=== PATIENT | female | born 1945 | race Asian ===

== ENCOUNTER 2021-01-12 08:43 | Emergency (ER) | payer MEDICARE, MEDICAID ==
--- NOTE | 2021-01-12 09:46 | EDM.PDOC ---
ED HPI GENERAL MEDICAL PROBLEM - General Chief Complaint: General Stated Complaint: COVID + HAS GOT WORSE SINCE REGENERON INFUSION Time Seen by Provider: 01/12/21 09:35 - History of Present Illness INITIAL COMMENTS - FREE TEXT/NARRATIVE: 75-year-old female presents the emergency room with weakness and a left-sided headache. Patient states this started fairly quickly after getting the monoclonal antibody treatment 2 weeks ago for Covid. It is not getting better she is able to care for self but she has this annoying left-sided headache. She is not had any fevers or chills. However, does have some dizziness associated with this headache it is caused her to fall a couple of times she denies any significant injury from the falls. She has no other complaints at this time. Headache Pain Score (Numeric/FACES): 7 - Related Data Allergies Allergy/AdvReac Type Severity Reaction Status Date / Time No Known Allergies Allergy Verified 12/29/20 11:01 Home Meds: Home Meds Orphenadrine [Norflex] 100 mg PO ASDIRECTED #7 tab 01/12/21 [Rx] Past Medical History HEENT History: Reports: Impaired Vision - Infectious Disease History Infectious Disease History: Reports: Novel Coronavirus Social & Family History - Tobacco Use Tobacco Use Status *Q: Never Tobacco User ED ROS GENERAL - Review of Systems Review Of Systems: See Below Constitutional: Reports: Weakness, Fatigue, Other (She attributes the weakness and fatigue to the headache). Denies: Fever, Chills HEENT: Reports: No Symptoms Respiratory: Reports: No Symptoms Cardiovascular: Reports: No Symptoms GI/Abdominal: Reports: No Symptoms : Reports: No Symptoms Musculoskeletal: Reports: No Symptoms Skin: Reports: No Symptoms Neurological: Reports: Headache, Difficulty Walking (Secondary to dizziness), Weakness (She attributes this to dizziness). Denies: Trouble Speaking Psychiatric: Reports: No Symptoms Hematologic/Lymphatic: Reports: No Symptoms Immunologic: Reports: No Symptoms ED EXAM, GENERAL - Physical Exam Exam: See Below Exam Limited By: No Limitations General Appearance: Alert, No Apparent Distress Eye Exam: Bilateral Eye: Normal Inspection, PERRL Ears: Normal External Exam, Normal Canal, Hearing Grossly Normal, Normal TMs Nose: Normal Inspection, Normal Mucosa, No Blood Throat/Mouth: Normal Inspection, Normal Lips, Normal Teeth, Normal Gums, Normal Oropharynx, Normal Voice, No Airway Compromise Head: Atraumatic, Normocephalic Neck: Normal Inspection, Supple, Other (She has paraspinous muscle spasm and tightness on the left side palpation at the base the skull seems to elicit the discomfort that she has with her headache.). No: Limited Range of Motion, Tender Midline Respiratory/Chest: No Respiratory Distress, Lungs Clear, Normal Breath Sounds, No Accessory Muscle Use, Chest Non-Tender Cardiovascular: Regular Rate, Rhythm, No Edema, No Murmur GI/Abdominal: Normal Bowel Sounds, Soft, Non-Tender Back Exam: Normal Inspection. No: CVA Tenderness (L), CVA Tenderness (R) Extremities: Normal Inspection, No Pedal Edema Neurological: Alert, Oriented, Normal Cognition, Other (The patient has subtle right sided upper extremity weakness compared to the left she is right-hand dominant. Her right leg may be ever so subtly weaker than the left this is much more subtle than the upper extremity) Lymphatic: No Adenopathy Course - Vital Signs Last Recorded V/S: Last Vital Signs Temp 36.2 C 01/12/21 09:09 Pulse 72 01/12/21 09:09 Resp 18 01/12/21 09:09 BP 137/87 01/12/21 09:09 Pulse Ox 97 01/12/21 09:09 - Orders/Labs/Meds Orders: Active Orders 24 hr Category Date Time Status CULTURE URINE [MREF] Stat Lab 01/12/21 10:40 Received Labs: Laboratory Tests 01/12/21 01/12/21 01/12/21 Range/Units 10:15 10:15 10:40 WBC 5.55 (3.98-10.04) K/mm3 RBC 4.93 (3.98-5.22) M/mm3 Hgb 14.5 (11.2-15.7) gm/dl Hct 43.9 (34.1-44.9) % MCV 89.0 (79.4-94.8) fl MCH 29.4 (25.6-32.2) pg MCHC 33.0 (32.2-35.5) g/dl RDW Std Deviation 44.5 (36.4-46.3) fL Plt Count 564 H (182-369) K/mm3 MPV 8.3 L (9.4-12.3) fl Neut % (Auto) 53.7 (34.0-71.1) % Lymph % (Auto) 35.5 (19.3-51.7) % [place] % (Auto) 9.7 (4.7-12.5) % Eos % (Auto) 0.5 L (0.7-5.8) Baso % (Auto) 0.4 (0.1-1.2) % Neut # (Auto) 2.98 (1.56-6.13) K/mm3 Lymph # (Auto) 1.97 (1.18-3.74) K/mm3 [place] # (Auto) 0.54 H (0.24-0.36) K/mm3 Eos # (Auto) 0.03 L (0.04-0.36) K/mm3 Baso # (Auto) 0.02 (0.01-0.08) K/mm3 Sodium 141 (136-145) mEq/L Potassium 4.2 (3.5-5.1) mEq/L Chloride 104 (98-107) mEq/L Carbon Dioxide 30 (21-32) mEq/L Anion Gap 11.2 (5-15) BUN 10 (7-18) mg/dL Creatinine 0.8 (0.55-1.02) mg/dL Est Cr Clr Drug Dosing 47.26 mL/min Estimated GFR (MDRD) > 60 (>60) mL/min BUN/Creatinine Ratio 12.5 L (14-18) Glucose 93 (70-99) mg/dL Calcium 9.3 (8.5-10.1) mg/dL Total Bilirubin 0.5 (0.2-1.0) mg/dL AST 19 (15-37) U/L ALT 25 (14-59) U/L Alkaline Phosphatase 101 (46-116) U/L Total Protein 8.8 H (6.4-8.2) g/dl Albumin 3.5 (3.4-5.0) g/dl Globulin 5.3 gm/dL Albumin/Globulin Ratio 0.7 L (1-2) Urine Color Yellow (Yellow) Urine Appearance Clear (Clear) Urine pH 7.0 (5.0-8.0) Ur Specific [place] 1.020 (1.005-1.030) Urine Protein Negative (Negative) Urine Glucose (UA) Negative (Negative) Urine Ketones Negative (Negative) Urine Occult Blood Trace-intact H (Negative) Urine Nitrite Negative (Negative) Urine Bilirubin Negative (Negative) Urine Urobilinogen 0.2 (0.2-1.0) Ur Leukocyte Esterase Trace H (Negative) Urine RBC 0-5 (0-5) /hpf Urine WBC 0-5 (0-5) /hpf Ur Squamous Epith Cells 0-5 (0-5) /hpf Urine Bacteria Few (FEW) /hpf Urine Mucus Few (FEW) /hpf Meds: Medications Discontinued Medications Generic Name Dose Route Start Last Admin Trade Name Adrien PRN Reason Stop Dose Admin Aspirin 81 mg 01/12/21 13:37 01/12/21 13:47 Aspirin 81 Mg Tab.Chew PO 01/12/21 13:38 81 mg ONETIME ONE Administration - Re-Assessments/Exams Free Text/Narrative Re-Assessment/Exam: 01/12/21 10:53 CT shows low-density findings within the left cerebellar hemisphere representing a previous stroke MRI with was recommended, this has been ordered. 01/12/21 13:45 MRI does confirm an area consistent with a stroke in the left cerebellar hemisphere. It is believed that this infarct is irreversible. Case discussed with on-call neurologist at [facility] in [place], he recommends single platelet therapy baby aspirin daily echocardiogram and vascular studies of the head and neck structures. At this time I have a call out to Deena Chavez the patient's regular healthcare provider and will discuss further work-up with her. Departure - Departure Time of Disposition: 13:48 Disposition: Home, Self-Care 01 Clinical Impression: CVA (cerebral vascular accident), Muscle tension headache - Discharge Information Instructions: Tension Headache, Adult Referrals: Dracy Chavez PA-C [Primary Care Provider] - Forms: ED Department Discharge Additional Instructions: Return to the emergency room with any questions problems or worsening symptoms. Start a baby aspirin 81 mg enteric-coated 1 daily you were given 1 here in the emergency room today. Use the Norflex the muscle relaxant 1 at night and see if this helps with your h eadaches. I put orders in for you to have an outpatient CT to look at your blood vessels in your brain and neck, and an echocardiogram which is an ultrasound your heart. You should be put on a statin medication this is to help control cholesterol. Follow-up with Deena Chavez for this. Follow-up with Deena Chavez this week or early next week Sepsis Event Note (ED) - Evaluation Sepsis Screening Result: No Definite Risk - Focused Exam Vital Signs: Vital Signs Temp Pulse Resp BP Pulse Ox 01/12/21 09:09 36.2 C 72 18 137/87 97 01/12/21 09:03 36.2 C 72 18 137/87 97 - My Orders Last 24 Hours: My Active Orders 01/12/21 10:40 CULTURE URINE [MREF] Stat - Assessment/Plan Last 24 Hours: My Active Orders 01/12/21 10:40 CULTURE URINE [MREF] Stat
--- NOTE | 2021-01-12 10:19 | CT ---
Head CT Technique: Multiple axial sections through the brain were obtained. Intravenous contrast was not utilized. Reconstructed coronal and sagittal images were obtained. Comparison: No prior intracranial imaging is available. Findings: Low density abnormality is seen within the left cerebellar hemisphere. This is most likely due to a previous infarct although MRI study would be helpful to confirm. This lesion measures approximately 2.8 x 3.1 cm. Ventricles along with basal cisterns and sulci over the convexities are mildly prominent. Very minimal diminished density is noted within portions of the periventricular white matter which is compatible with small vessel ischemic demyelination change. There is no evidence of intracranial hemorrhage. No midline shift or mass-effect is seen. Bone window settings were reviewed. Visualized calvarium shows nothing acute. Visualized mastoid sinuses and paranasal sinuses show nothing acute. Minimal atherosclerotic calcification is seen within the vertebral vessels and the carotid siphon. Impression: 1. Low density finding within the left cerebellar hemisphere most likely representing previous infarct. MRI could be obtained to confirm this suggestion. 2. Other senescent change as noted above. No other acute abnormality is appreciated. Diagnostic code #3
--- NOTE | 2021-01-12 10:27 | CR ---
Chest: Portable view of the chest was obtained. Comparison: No prior chest imaging is available. Heart size and mediastinum are normal. Lungs show no acute parenchymal change. Degenerative spurring is noted within the spine. No acute osseous abnormality is appreciated. Impression: 1. Nothing acute is seen on portable chest x-ray. Diagnostic code #2
--- NOTE | 2021-01-12 11:51 | MR ---
MRI brain Technique: T1 sagittal; T2, T2 FLAIR, T1 and diffusion axial; T1 FLAIR coronal images were obtained. Comparison: Prior head CT study performed earlier on the same day (09:57 AM). Findings: Diffusion abnormality correlates to the low density abnormality on head CT study within the medial left cerebellar hemisphere which extends into the mid aspect of the cerebellum. This diffusion abnormality measures approximately 3.5 cm x 2.6 cm. This abnormality shows slight increased signal on the FLAIR sequence which is compatible with an irreversible infarct. Mild areas of increased signal are seen within the periventricular and subcortical white matter which is compatible with small vessel ischemic demyelination change. Ventricles along with basal cisterns and sulci over the convexities are mildly prominent. No midline shift or mass-effect is seen. Visualized paranasal sinuses and mastoid sinuses show nothing acute. Impression: 1. CT abnormality within the left cerebellar hemisphere correlates to a diffusion abnormality on MRI. This involves the cerebellar hemisphere medially and also extends into the medial aspect of the cerebellum. Slight increased signal is seen on the FLAIR sequence which is compatible with a recent infarct which is irreversible. 2. Other senescent change as noted above. Diagnostic code #3
[2021-01-12] MEDS ORDERED: Aspirin 81 MG Tab.Chew PO ONE (13:37)
== END 2021-01-12 14:10 | disposition home or self-care (01) ==
LOC: JD.ED 08:43
DX: I63.9 Cerebral infarction, unspecified (principal); G44.209 Tension-type headache, unspecified, not intractable; Z86.16 Personal history of COVID-19
CPT/HCPCS: 36415; 70450; 70551; 71045; 80053; 81001; 85025; 87086; 99285; A9270; 99284